=== PATIENT | female | born 1995 | race American Indian/Alaskan Native ===

== ENCOUNTER 2018-02-06 16:45 | Emergency (ER) | payer SELFPAY ==
[2018-02-06 19:18] LABS: Bacteria,Urine 1+ /HPF (Negative); Bilirubin,Urine NEG (Negative); Blood,Urine NEG (Negative); Color,Urine Yellow (Yellow); Mucus,Urine 3+ /HPF; Urobilinogen,Urine < 2.0 mg/dL (<2.0)
[2018-02-06 19:19] LABS: HCG Qualitative,Urine Negative (Negative)
--- NOTE | 2018-02-06 21:20 | Emergency Department Report ---
ED Female HPI - General Chief complaint: Urogenital-Female Stated complaint: ABD PAIN/UTI Time Seen by Provider: 02/06/18 21:01 Source: patient Mode of arrival: Ambulatory Limitations: No Limitations - History of Present Illness Initial comments: 21-year-old -Chinese female comes in complaining of lower abdominal pain times one month with vaginal discharge. Patient reports that she was recently diagnosed with the UTI but" I loss the prescriptions". Patient reports that she has a headache. Patient's request STD checking. Patient is currently homeless at this time. She comes from [place]. She has a past medical history of schizoaffective disorder and bipolar. She is currently on doxepin Risperdal and Neurontin. MD Complaint: vaginal discharge, dysuria -: month(s) (1) Radiation: non-radiating Severity: moderate Quality: sharp Consistency: intermittent Improves with: none Worsens with: none Are you Now?: No Associated Symptoms: vaginal discharge, headaches, dysuria. denies: vaginal bleeding, loss of appetite - Related Data Sexually active: Yes Previous Rx's Medication Instructions Recorded Last Taken Type Ibuprofen [Motrin 600 MG tab] 600 mg PO Q8H PRN #30 tablet 02/06/18 Unknown Rx Nitrofurantoin Monohyd/M-Cryst 100 mg PO BID #20 capsule 02/06/18 Unknown Rx [Macrobid 100 mg Capsule] Allergies Allergy/AdvReac Type Severity Reaction Status Date / Time No Known Allergies Allergy Verified 02/06/18 16:56 ED Review of Systems ROS: Stated complaint: ABD PAIN/UTI Other details as noted in HPI Gastrointestinal: denies: nausea, vomiting Genitourinary: dysuria, discharge, other (pelvic cramping) ED Past Medical Hx - Past Medical History Previous Medical History?: Yes Hx Psychiatric Treatment: Yes (bipolar, schizo affective) Additional medical history: gallstones - Surgical History Past Surgical History?: Yes Additional Surgical History: right ankle surgery - Social History Smoking Status: Never Smoker Substance Use Type: None - Medications Home Medications: Home Medications Medication Instructions Recorded Confirmed Last Taken Type Ibuprofen [Motrin 600 MG tab] 600 mg PO Q8H PRN #30 tablet 02/06/18 Unknown Rx Nitrofurantoin Monohyd/M-Cryst 100 mg PO BID #20 capsule 02/06/18 Unknown Rx [Macrobid 100 mg Capsule] ED Physical Exam - General Limitations: No Limitations General appearance: alert, in no apparent distress - Head Head exam: Present: atraumatic, normocephalic - Eye Eye exam: Present: normal appearance - ENT ENT exam: Present: mucous membranes moist - Respiratory Respiratory exam: Present: normal lung sounds bilaterally. Absent: respiratory distress - Cardiovascular Cardiovascular Exam: Present: regular rate, normal rhythm. Absent: systolic murmur, diastolic murmur, rubs, gallop - GI/Abdominal GI/Abdominal exam: Present: soft. Absent: distended, tenderness - Extremities Exam Extremities exam: Present: normal inspection - Back Exam Back exam: Present: full ROM - Neurological Exam Neurological exam: Present: alert, oriented X3 - Psychiatric Psychiatric exam: Present: normal affect, normal mood - Skin Skin exam: Present: warm, dry, intact, normal color. Absent: rash ED Course Vital Signs 02/06/18 16:48 Temperature 98.2 F Pulse Rate 90 Respiratory 16 Rate Blood Pressure 112/75 O2 Sat by Pulse 97 Oximetry ED Medical Decision Making - Medical Decision Making Assessment seen by this provider fast track. We will treat patient for STD. As well as treat her for her urinary tract infection. Advised patient to follow up with the health department. Critical care attestation.: If time is entered above; I have spent that time in minutes in the direct care of this critically ill patient, excluding procedure time. ED Disposition Clinical Impression: Concern about STD in female without diagnosis UTI (urinary tract infection) Qualifiers: Urinary tract infection type: acute cystitis Hematuria presence: without hematuria Qualified Code(s): N30.00 - Acute cystitis without hematuria Disposition: - TO HOME OR SELFCARE Is pt being admited?: No Does the pt Need Aspirin: No Condition: Stable Instructions: Urinary Tract Infection in Women (ED), Safe Sex (ED), Sexually Transmitted Diseases (ED) Additional Instructions: Complete antibiotics as prescribed. Take her pain medication as needed. Follow -up with the primary care provider if symptoms persist or gets worse. Prescriptions: Ibuprofen [Motrin 600 MG tab] 600 mg PO Q8H PRN #30 tablet PRN Reason: Pain Nitrofurantoin Monohyd/M-Cryst [Macrobid 100 mg Capsule] 100 mg PO BID #20 capsule Referrals: PRIMARY CARE, [Primary Care Provider] - 3-5 Days [facility] [Provider Group] - 3-5 Days
[2018-02-06] MEDS ORDERED: ZITHROMAX PO ONE (21:21)
[2018-02-06] MEDS ORDERED: ROCEPHIN IM ONE (21:21)
[2018-02-06] MEDS ORDERED: FLAGYL PO ONE (21:21)
[2018-02-06] MEDS ORDERED: XYLOCAINE 1% MPF 5 mL INFILTRATI ONE (21:21)
[2018-02-06] MEDS ORDERED: TYLENOL PO ONE (21:24)
[2018-02-06 21:48] VITALS: BP 114/76
== END 2018-02-06 21:51 | disposition home or self-care (01) ==
LOC: ED 16:45
DX: N30.00 Acute cystitis without hematuria (principal); F31.9 Bipolar disorder, unspecified
CPT/HCPCS: 81001; 81025; 96372; 99283; J0696